=== PATIENT | female | born 1980 | race Two or more races ===

== ENCOUNTER 2024-07-11 11:15 | Inpatient (IN) | payer OTHER ==
[~2024-07-11] VITALS: Ht 162.6 cm; Wt 93.4 kg
[2024-07-11 14:00] VITALS: BP 114/65
[2024-07-20] MEDS ORDERED: CEFTRIAXONE SODIUM 2,000 MG VIAL IV SCH (16:30)
[2024-07-20] MEDS ORDERED: METRONIDAZOLE/SODIUM CHLORIDE 500 MG/100 ML PIGGYBACK IV SCH (16:30)
[2024-07-20] MEDS ORDERED: ONDANSETRON HCL 2 MG/ML VIAL IV PRN (16:30)
[2024-07-20] MEDS ORDERED: MORPHINE SULFATE 4 MG/ML CARTRIDGE IV PRN (16:30)
[2024-07-20] MEDS ORDERED: SUGAMMADEX SODIUM 200 MG/2 ML VIAL IV SCH (16:30)
[2024-07-20] MEDS ORDERED: BUPIVACAINE HCL 30 ML VIAL IJ SCH (16:30)
[2024-07-20] MEDS ORDERED: LIDOCAINE HCL 1%/EPINEPHRINE 20ML VIAL IJ SCH (16:30)
[2024-07-20] MEDS ORDERED: OxyCODONE HCL 5 MG TABLET (ROXICODONE) PO PRN (16:30)
[2024-07-20] MEDS ORDERED: RINGERS SOLUTION,LACTATED 1,000 ML IV SCH (16:30)
[2024-07-20] MEDS ORDERED: DEXTROSE 50 % IN WATER 0.5 G/ML DISP.SYRIN IV PRN (16:30)
[2024-07-20] MEDS ORDERED: MORPHINE SULFATE 4 MG/ML VIAL IV ONE ×2 (16:45→18:00)
[2024-07-20] MEDS ORDERED: POLYETHYLENE GLYCOL 3350 17 GM BLIST.PACK PO SCH (17:00)
[2024-07-20] MEDS ORDERED: METOCLOPRAMIDE HCL 5 MG/ML VIAL IV SCH (17:00)
[2024-07-20] MEDS ORDERED: HYOSCYAMINE SULFATE 0.125 MG TAB.SUBL SL SCH (17:00)
[2024-07-20] MEDS ORDERED: CELECOXIB 200 MG CAPSULE PO SCH (17:00)
[2024-07-20] MEDS ORDERED: SIMETHICONE 125 MG CAPSULE PO SCH (17:00)
[2024-07-20] MEDS ORDERED: GABAPENTIN 300 MG CAPSULE PO SCH (17:00)
[2024-07-20 19:02] LABS: HEMATOCRIT 32.5 % (36.0-45.00); HEMOGLOBIN 10.6 g/dL (12.0-15.00); MEAN CELL VOLUME 79.8 fL (80.00-100.00); MEAN CORPUSCULAR HGB CONC 32.6 g/dl (32.0-36.0); PLATELET COUNT 516 K/uL (150-450); RED BLOOD COUNT 4.07 M/uL (4.00-6.00); RED CELL DISTRIBUTION WIDTH 23.4 % (11.5-14.5)
[2024-07-20] MEDS ORDERED: ACETAMINOPHEN 500 MG GEL..CAP PO SCH (20:00)
[2024-07-20 20:19] VITALS: BP 114/65; O2SAT 96
[2024-07-20] MEDS ORDERED: FAMOTIDINE/PF 20 MG/2 ML VIAL IV PUSH SCH (21:00)
[2024-07-21 01:55] VITALS: BP 111/60; O2SAT 95
[2024-07-21 06:54] LABS: HEMATOCRIT 28.3 % (36.0-45.00); HEMOGLOBIN 9.3 g/dL (12.0-15.00); MEAN CELL VOLUME 78.7 fL (80.00-100.00); MEAN CORPUSCULAR HEMOGLOBIN 25.9 pg (27.00-32.0); MEAN CORPUSCULAR HGB CONC 32.9 g/dl (32.0-36.0); PLATELET COUNT 451 K/uL (150-450); RED CELL DISTRIBUTION WIDTH 22.3 % (11.5-14.5)
[2024-07-21 07:07] LABS: ALBUMIN 1.5 gm/dL (3.4-5.0); CREATININE SERUM 0.37 mg/dL (0.55-1.02); GFR 189.72; MAGNESIUM 2.1 mg/dL (1.8-2.4); PHOSPHOROUS 3.4 mg/dL (2.5-4.9); POTASSIUM 3.57 mEq/L (3.5-5.1)
[2024-07-21] MEDS ORDERED: LACTULOSE 20 G/30 ML BLIST.PACK PO SCH (09:00)
[2024-07-21] MEDS ORDERED: LACTOBACILLUS ACIDOPHILUS 1 CAP CAP PO SCH (09:00)
[2024-07-21 09:03] VITALS: BP 109/73; O2SAT 95
[2024-07-21 16:08] VITALS: BP 90/62; O2SAT 95
[2024-07-21] MEDS ORDERED: ENOXAPARIN SODIUM 40 MG/0.4 ML SYRINGE SUBCUTANEO SCH (17:00)
[2024-07-22 00:12] VITALS: BP 100/68; O2SAT 98
[2024-07-22 08:30] VITALS: BP 103/63; O2SAT 98
[2024-07-22] MEDS ORDERED: ENOXAPARIN SODIUM 40 MG/0.4 ML SYRINGE SUBCUTANEO SCH (09:00)
[2024-07-22 16:00] VITALS: BP 110/68; O2SAT 97
[2024-07-23 00:03] VITALS: BP 132/69; O2SAT 97
[2024-07-23 08:37] VITALS: BP 98/68; O2SAT 98
[2024-07-23] MEDS ORDERED: ZINC OXIDE 30 GM TUBE TOP SCH ×2 (12:18→17:00)
[2024-07-23 16:25] VITALS: BP 86/58; O2SAT 95
[2024-07-23 18:51] VITALS: BP 90/62
[2024-07-24 00:05] VITALS: BP 107/63; O2SAT 100
[2024-07-24 08:00] VITALS: BP 102/62; O2SAT 97
[2024-07-24 16:49] VITALS: BP 104/74; O2SAT 99
[2024-07-24 23:45] VITALS: BP 96/64; O2SAT 100
[2024-07-25 08:00] VITALS: BP 115/55; O2SAT 99
== END 2024-07-25 14:49 | disposition home or self-care (01) | DRG 983 ==
LOC: SURH 07-20 11:15 → O/R 07-20 11:52 → SURG 07-20 11:52 → SURH 07-20 21:45 → SURG 07-25 14:49
PROVIDERS: ADMIT Colon & Rectal Surgery; ATTEND Colon & Rectal Surgery
PROC: 0D1L4Z4 Bypass Transverse Colon to Cutaneous, Percutaneous Endoscopic Approach (ICD-10-PCS; principal; 2024-07-20 21:45)
DX: K82.3 Fistula of gallbladder (principal); K62.7 Radiation proctitis

== ENCOUNTER 2024-09-10 09:59 | Inpatient (IN) | payer OTHER ==
[~2024-09-10] VITALS: Ht 162.6 cm; Wt 84.4 kg
[2024-09-10] MEDS ORDERED: 0.9 % SODIUM CHLORIDE 1,000 ML IV ONE (10:30)
[2024-09-10 11:07] LABS: HEMATOCRIT 31.3 % (36.0-45.00); MEAN CELL VOLUME 82.6 fL (80.00-100.00); MEAN CORPUSCULAR HEMOGLOBIN 26.3 pg (27.00-32.0); MEAN CORPUSCULAR HGB CONC 31.9 g/dl (32.0-36.0); PLATELET COUNT 445 K/uL (150-450); RED BLOOD COUNT 3.78 M/uL (4.00-6.00); RED CELL DISTRIBUTION WIDTH 18.1 % (11.5-14.5)
[2024-09-10 11:23] LABS: ALBUMIN 2.4 gm/dL (3.4-5.0); BILIRUBIN TOTAL 0.2 mg/dL (0.3-1.2); CALCIUM 8.9 mg/dL (8.5-10.1); CREATININE SERUM 0.46 mg/dL (0.55-1.02); GFR 147.57; GLOBULINA 5.5 G/DL (2.4-3.5); TOTAL PROTEIN 7.9 gm/dL (6.4-8.2)
[2024-09-10 11:50] LABS: URINE APPEARANCE Cloudy; URINE BILIRRUBIN Negative (NEGATIVE); URINE COLOR Yellow; URINE GLUCOSE Negative (NEGATIVE); URINE KETONE Negative (NEGATIVE); URINE LEUKOCYTE Large; URINE NITRATE Negative; URINE PROTEIN Trace (NEGATIVE); URINE UROBILINOGEN 0.2 E.U./dl
[2024-09-10 11:56] LABS: URINE BACTERIA 943.6 uL (0.0-1933); URINE EPITHELIAL CELLS 2.6 uL (0.0-38.8); URINE RBC 19.4 uL (0.0-20.8); URINE WBC 619.3 uL (0.0-23.2)
[2024-09-10 12:01] LABS: URINE BLOOD TRACE; URINE CAST 0.29 uL (0.0-1.40)
[2024-09-10] MEDS ORDERED: KETOROLAC TROMETHAMINE 60 MG VIAL IM ONE (12:09)
[2024-09-10] MEDS ORDERED: KETOROLAC TROMETHAMINE 15 MG VIAL IV ONE (12:15)
[2024-09-10 12:36] LABS: POTASSIUM 2.54 mEq/L (3.5-5.1)
[2024-09-10] MEDS ORDERED: POTASSIUM CHLORIDE IN 0.9%NACL 40 MEQ/1,000 ML PIGGYBAG IV ONE (12:45)
[2024-09-10] MEDS ORDERED: DIPHENHYDRAMINE HCL 50 MG/ML VIAL 1ML IV ONE (14:30)
[2024-09-10] MEDS ORDERED: METHYLPREDNISOLONE SOD SUCC 125 MG VIAL IV ONE (14:30)
[2024-09-10] MEDS ORDERED: DIPHENHYDRAMINE HCL 50 MG/ML VIAL 1ML ONE (14:46)
[2024-09-10] MEDS ORDERED: METHYLPREDNISOLONE SOD SUCC 125 MG VIAL ONE (14:47)
[2024-09-10] MEDS ORDERED: 0.9 % SODIUM CHLORIDE 1,000 ML IV SCH (21:00)
[2024-09-10] MEDS ORDERED: ONDANSETRON HCL 4 MG in 0.9 % SODIUM CHLORIDE 50 ML IV PRN (21:15)
[2024-09-10] MEDS ORDERED: ACETAMINOPHEN 325 MG TABLET PO PRN (21:15)
[2024-09-11 01:40] VITALS: BP 133/80; O2SAT 97
[2024-09-11] MEDS ORDERED: POTASSIUM CHLORIDE IN WATER 100 ML IV ONE (02:00)
[2024-09-11 07:51] LABS: INR 1.04; PROTHROMBIN TIME 11.3 SECONDS (9.0-11.5)
[2024-09-11 08:00] VITALS: BP 117/78; O2SAT 95
[2024-09-11 08:06] LABS: ALBUMIN 2.2 gm/dL (3.4-5.0); BILIRUBIN TOTAL 0.27 mg/dL (0.3-1.2); CALCIUM 8.9 mg/dL (8.5-10.1); CREATININE SERUM 0.4 mg/dL (0.55-1.02); GFR 173.4; GLOBULINA 4.7 G/DL (2.4-3.5); MAGNESIUM 1.9 mg/dL (1.8-2.4); PHOSPHOROUS 4.3 mg/dL (2.5-4.9); POTASSIUM 3.1 mEq/L (3.5-5.1); TOTAL PROTEIN 6.9 gm/dL (6.4-8.2)
[2024-09-11] MEDS ORDERED: PANTOPRAZOLE SODIUM 40 MG/VIAL VIAL IV SCH (09:00)
[2024-09-11] MEDS ORDERED: ACETAMINOPHEN 500 MG GEL..CAP PO PRN (10:00)
[2024-09-11] MEDS ORDERED: TRAMADOL HCL 50 MG TABLET PO SCH (18:00)
[2024-09-11 20:42] VITALS: BP 110/65; O2SAT 97
[2024-09-11] MEDS ORDERED: POTASSIUM CHLORIDE IN WATER 100 ML IV STA (23:20)
[2024-09-11] MEDS ORDERED: POTASSIUM CHLORIDE 20MEQ/100ML H2O PB IV ONE (23:26)
[2024-09-11] MEDS ORDERED: CIPROFLOXACIN IN 5 % DEXTROSE 200 ML IV SCH (23:30)
[2024-09-12] MEDS ORDERED: CIPROFLOXACIN IN 5 % DEXTROSE 400 MG/200 ML PIGGYBAG IV ONE (01:04)
[2024-09-12 23:26] LABS: PH,URINE 7.5 (5.0-8.0); URINE APPEARANCE Clear; URINE BILIRRUBIN Negative (NEGATIVE); URINE BLOOD NHT; URINE COLOR Yellow; URINE GLUCOSE Negative (NEGATIVE); URINE KETONE Negative (NEGATIVE); URINE LEUKOCYTE Large; URINE NITRATE Negative; URINE PROTEIN Negative (NEGATIVE); URINE UROBILINOGEN 0.2 E.U./dl
[2024-09-12 23:30] LABS: URINE BACTERIA 204.3 uL (0.0-1933); URINE RBC 8.2 uL (0.0-20.8); URINE WBC 62.2 uL (0.0-23.2)
[2024-09-13 07:06] LABS: HEMATOCRIT 30.1 % (36.0-45.00); HEMOGLOBIN 9.8 g/dL (12.0-15.00); MEAN CORPUSCULAR HEMOGLOBIN 26.5 pg (27.00-32.0); MEAN CORPUSCULAR HGB CONC 32.7 g/dl (32.0-36.0); PLATELET COUNT 439 K/uL (150-450); RED BLOOD COUNT 3.71 M/uL (4.00-6.00)
[2024-09-13 07:50] LABS: ALBUMIN 2.5 gm/dL (3.4-5.0); BILIRUBIN TOTAL 0.31 mg/dL (0.3-1.2); CREATININE SERUM 0.41 mg/dL (0.55-1.02); GFR 168.52; GLOBULINA 4.8 G/DL (2.4-3.5); MAGNESIUM 1.7 mg/dL (1.8-2.4); PHOSPHOROUS 4.7 mg/dL (2.5-4.9); POTASSIUM 3.09 mEq/L (3.5-5.1); TOTAL PROTEIN 7.3 gm/dL (6.4-8.2)
[2024-09-13 07:51] LABS: C-REACTIVE PROTEIN 2.25 MG/DL (0.00-0.29)
[2024-09-13 08:00] VITALS: BP 145/71; O2SAT 100
[2024-09-13 16:00] VITALS: BP 118/63; O2SAT 100
[2024-09-14] VITALS: BP 116/82; O2SAT 98
[2024-09-14 09:06] VITALS: BP 126/68; O2SAT 98
[2024-09-14] MEDS ORDERED: POTASSIUM CHLORIDE IN WATER 100 ML IV STA (12:32)
[2024-09-14] MEDS ORDERED: MAGNESIUM SULFATE/D5W 100 ML IV NR (12:45)
[2024-09-14] MEDS ORDERED: SOD FERRIC GLUC COMPLX/SUCROSE 62.5 MG/5 ML AMPUL IV NR (12:50)
[2024-09-14 16:00] VITALS: BP 138/79; O2SAT 99
[2024-09-14] MEDS ORDERED: POTASSIUM CHLORIDE IN WATER 100 ML IV NR (17:00)
[2024-09-15 00:17] VITALS: BP 115/62; O2SAT 99
[2024-09-15 07:51] VITALS: BP 106/71; O2SAT 98
[2024-09-15 07:59] LABS: CALCIUM 8.7 mg/dL (8.5-10.1); CREATININE SERUM 0.4 mg/dL (0.55-1.02); GFR 173.4; POTASSIUM 3.2 mEq/L (3.5-5.1)
[2024-09-15] MEDS ORDERED: SOD FERRIC GLUC COMPLX/SUCROSE 62.5 MG/5 ML AMPUL IV SCH (09:00)
[2024-09-15] MEDS ORDERED: FUROsemide 20 MG/2 ML VIAL IV STA ×2 (09:19→12:05)
[2024-09-15] MEDS ORDERED: MAGNESIUM SULFATE/D5W 100 ML IV NR (11:45)
[2024-09-15] MEDS ORDERED: POTASSIUM CHLORIDE IN WATER 100 ML IV SCH (13:00)
[2024-09-15 16:00] VITALS: BP 118/55; O2SAT 100
[2024-09-15] MEDS ORDERED: VANCOMYCIN HCL 1,000 MG VIAL ONE (16:46)
[2024-09-15] MEDS ORDERED: VANCOMYCIN HCL 1,000 MG VIAL IV SCH (17:00)
[2024-09-15 23:47] VITALS: BP 118/64; O2SAT 99
[2024-09-16] MEDS ORDERED: VANCOMYCIN HCL 1,000 MG VIAL ONE ×3 (03:25→23:44)
[2024-09-16 09:16] VITALS: BP 105/73; O2SAT 98
[2024-09-16] MEDS ORDERED: SODIUM CL 0.9% 50 ML IV.SOLN IV ONE (12:22)
[2024-09-16 16:00] VITALS: BP 101/68; O2SAT 99
[2024-09-16] MEDS ORDERED: OxyCODONE HCL/APAP UD (PERCOCET) PO PRN (22:45)
[2024-09-17] VITALS: BP 111/73; O2SAT 98
[2024-09-17 08:21] VITALS: BP 116/75; O2SAT 95
[2024-09-17 08:22] LABS: HEMATOCRIT 29.1 % (36.0-45.00); HEMOGLOBIN 9.4 g/dL (12.0-15.00); MEAN CORPUSCULAR HEMOGLOBIN 26.6 pg (27.00-32.0); MEAN CORPUSCULAR HGB CONC 32.4 g/dl (32.0-36.0); RED BLOOD COUNT 3.55 M/uL (4.00-6.00); RED CELL DISTRIBUTION WIDTH 17.1 % (11.5-14.5)
[2024-09-17 08:24] LABS: CALCIUM 8.8 mg/dL (8.5-10.1); CREATININE SERUM 0.44 mg/dL (0.55-1.02); GFR 155.34; POTASSIUM 3.03 mEq/L (3.5-5.1)
[2024-09-17 10:01] LABS: PLATELET COUNT 357 K/uL (150-450)
[2024-09-17] MEDS ORDERED: POTASSIUM CHLORIDE IN WATER 100 ML IV NR (11:30)
[2024-09-17] MEDS ORDERED: VANCOMYCIN HCL 1,000 MG VIAL ONE (15:45)
[2024-09-17 16:14] VITALS: BP 121/81; O2SAT 97
[2024-09-18] VITALS: BP 123/77; O2SAT 97
[2024-09-18] MEDS ORDERED: VANCOMYCIN HCL 1,000 MG VIAL ONE ×2 (00:02→15:21)
[2024-09-18 07:49] LABS: HEMATOCRIT 28.2 % (36.0-45.00); HEMOGLOBIN 9.3 g/dL (12.0-15.00); MEAN CELL VOLUME 81.2 fL (80.00-100.00); MEAN CORPUSCULAR HEMOGLOBIN 26.8 pg (27.00-32.0); PLATELET COUNT 352 K/uL (150-450); RED BLOOD COUNT 3.47 M/uL (4.00-6.00); RED CELL DISTRIBUTION WIDTH 17.6 % (11.5-14.5)
[2024-09-18 08:00] VITALS: BP 111/73; O2SAT 95
[2024-09-18 08:09] LABS: CALCIUM 8.9 mg/dL (8.5-10.1); CREATININE SERUM 0.49 mg/dL (0.55-1.02); GFR 137.19; MAGNESIUM 1.7 mg/dL (1.8-2.4); PHOSPHOROUS 4.2 mg/dL (2.5-4.9); POTASSIUM 3.09 mEq/L (3.5-5.1)
[2024-09-18 16:07] VITALS: BP 97/53; O2SAT 96
[2024-09-19] VITALS: BP 102/68; O2SAT 96
[2024-09-19] MEDS ORDERED: VANCOMYCIN HCL 1,000 MG VIAL ONE ×3 (00:28→23:21)
[2024-09-19] MEDS ORDERED: OxyCODONE HCL/APAP UD (PERCOCET) PO PRN (03:30)
[2024-09-19 07:58] LABS: HEMATOCRIT 32.9 % (36.0-45.00); HEMOGLOBIN 10.3 g/dL (12.0-15.00); MEAN CELL VOLUME 83.7 fL (80.00-100.00); MEAN CORPUSCULAR HEMOGLOBIN 26.3 pg (27.00-32.0); MEAN CORPUSCULAR HGB CONC 31.4 g/dl (32.0-36.0); PLATELET COUNT 115 K/uL (150-450); RED BLOOD COUNT 3.94 M/uL (4.00-6.00); RED CELL DISTRIBUTION WIDTH 17.3 % (11.5-14.5)
[2024-09-19 08:32] LABS: CREATININE SERUM 0.48 mg/dL (0.55-1.02); GFR 140.5; MAGNESIUM 1.9 mg/dL (1.8-2.4); PHOSPHOROUS 4.5 mg/dL (2.5-4.9); POTASSIUM 3.22 mEq/L (3.5-5.1)
[2024-09-19 09:00] VITALS: BP 119/62; O2SAT 96
[2024-09-19 12:12] LABS: URINE APPEARANCE Clear; URINE BILIRRUBIN Negative (NEGATIVE); URINE BLOOD Negative; URINE COLOR Yellow; URINE GLUCOSE Negative (NEGATIVE); URINE KETONE Trace (NEGATIVE); URINE LEUKOCYTE Small; URINE NITRATE Negative; URINE PROTEIN Negative (NEGATIVE); URINE UROBILINOGEN 0.2 E.U./dl
[2024-09-19 12:46] LABS: URINE BACTERIA 30.5 uL (0.0-1933); URINE RBC 2.9 uL (0.0-20.8); URINE WBC 30.4 uL (0.0-23.2)
[2024-09-19] MEDS ORDERED: POTASSIUM CHLORIDE IN WATER 100 ML IV NR (13:00)
[2024-09-19 16:46] VITALS: BP 110/60; O2SAT 95
[2024-09-20 00:45] VITALS: BP 100/67; O2SAT 96
[2024-09-20 07:06] LABS: HEMATOCRIT 29.3 % (36.0-45.00); HEMOGLOBIN 9.5 g/dL (12.0-15.00); MEAN CELL VOLUME 81.7 fL (80.00-100.00); MEAN CORPUSCULAR HEMOGLOBIN 26.4 pg (27.00-32.0); MEAN CORPUSCULAR HGB CONC 32.3 g/dl (32.0-36.0); PLATELET COUNT 313 K/uL (150-450); RED BLOOD COUNT 3.59 M/uL (4.00-6.00); RED CELL DISTRIBUTION WIDTH 17.4 % (11.5-14.5)
[2024-09-20 08:14] LABS: CALCIUM 8.7 mg/dL (8.5-10.1); CREATININE SERUM 0.48 mg/dL (0.55-1.02); GFR 140.5
[2024-09-20 08:28] VITALS: BP 122/89; O2SAT 100
[2024-09-20 09:26] LABS: POTASSIUM 2.83 mEq/L (3.5-5.1)
[2024-09-20] MEDS ORDERED: POTASSIUM CHLORIDE 20MEQ/100ML H2O PB IV NR (13:42)
[2024-09-20] MEDS ORDERED: MAGNESIUM SULFATE IN WATER 50 ML IV NR (13:43)
[2024-09-20 16:00] VITALS: BP 96/62; O2SAT 96
[2024-09-20] MEDS ORDERED: VANCOMYCIN HCL 5 MG/ML REDILUIDO IV SCH (17:00)
[2024-09-21] VITALS: BP 108/67; O2SAT 97
[2024-09-21 08:20] VITALS: BP 104/72; O2SAT 96
[2024-09-21 12:03] LABS: CALCIUM 8.6 mg/dL (8.5-10.1); CREATININE SERUM 0.48 mg/dL (0.55-1.02); GFR 140.5; MAGNESIUM 2.1 mg/dL (1.8-2.4); PHOSPHOROUS 3.5 mg/dL (2.5-4.9); POTASSIUM 3.08 mEq/L (3.5-5.1)
[2024-09-21] MEDS ORDERED: POTASSIUM CHLORIDE 8 MEQ TABLET PO STA (12:12)
== END 2024-09-21 13:28 | disposition home or self-care (01) | DRG 394 ==
LOC: ER 10:01 → SURH 21:01
PROVIDERS: General Practice; Internal Medicine; Internal Medicine Geriatric Medicine; Internal Medicine Infectious Disease; Specialist; Surgery; ADMIT Colon & Rectal Surgery; ATTEND Colon & Rectal Surgery
PROC: BW21YZZ Computerized Tomography (CT Scan) of Abdomen and Pelvis using Other Contrast (ICD-10-PCS; 2024-09-10)
PROC: CT231ZZ Tomographic (Tomo) Nuclear Medicine Imaging of Kidneys, Ureters and Bladder using Technetium 99m (Tc-99m) (ICD-10-PCS; 2024-09-13)
PROC: 02HV33Z Insertion of Infusion Device into Superior Vena Cava, Percutaneous Approach (ICD-10-PCS; principal; 2024-09-14)
DX: K94.09 Other complications of colostomy (principal); N13.30 Unspecified hydronephrosis; N82.3 Fistula of vagina to large intestine; N39.0 Urinary tract infection, site not specified; E87.6 Hypokalemia; K31.89 Other diseases of stomach and duodenum; K62.7 Radiation proctitis; D64.9 Anemia, unspecified

== ENCOUNTER 2024-11-07 10:15 | Inpatient (IN) | payer OTHER ==
[~2024-11-07] VITALS: Ht 152.4 cm; Wt 84.4 kg
[2024-11-07] MEDS ORDERED: ENDOCET 5-3251 EACH PO (11:59)
[2024-11-07] MEDS ORDERED: FENTANYL1 EAC3 TD (11:59)
[2024-11-07] MEDS ORDERED: DICY20TA PO (12:00)
[2024-11-08] MEDS ORDERED: FUROsemide 20 MG/2 ML VIAL IV PRN (15:00)
[2024-11-08] MEDS ORDERED: OxyCODONE HCL 5 MG TABLET (ROXICODONE) PO PRN (15:00)
[2024-11-08] MEDS ORDERED: fentaNYL 25 MCG PATCH.TD72 TD NR (15:00)
[2024-11-08 16:00] VITALS: BP 130/63; O2SAT 99
[2024-11-08] MEDS ORDERED: SOD FERRIC GLUC COMPLX/SUCROSE 62.5 MG in 0.9 % SODIUM CHLORIDE 50 ML IV SCH (17:00)
[2024-11-08] MEDS ORDERED: ACETAMINOPHEN 325 MG TABLET PO SCH (17:00)
[2024-11-08] MEDS ORDERED: POLYETHYLENE GLYCOL 3350 238 GM POWDER PO NR (17:45)
[2024-11-08] MEDS ORDERED: FAMOTIDINE/PF 20 MG/2 ML VIAL IV SCH (21:00)
[2024-11-08] MEDS ORDERED: BISACODYL 5 MG TABLET.EC PO SCH (21:00)
[2024-11-09 08:15] VITALS: BP 132/79; O2SAT 99
[2024-11-09] MEDS ORDERED: MORPHINE SULFATE 4 MG/ML CARTRIDGE IV STA (10:19)
[2024-11-09] MEDS ORDERED: MORPHINE SULFATE 4 MG/ML CARTRIDGE IV PRN (11:15)
[2024-11-09 11:39] LABS: HEMATOCRIT 33.6 % (36.0-45.00); HEMOGLOBIN 10.7 g/dL (12.0-15.00); MEAN CELL VOLUME 77.8 fL (80.00-100.00); MEAN CORPUSCULAR HEMOGLOBIN 24.8 pg (27.00-32.0); MEAN CORPUSCULAR HGB CONC 31.9 g/dl (32.0-36.0); PLATELET COUNT 476 K/uL (150-450); RED BLOOD COUNT 4.32 M/uL (4.00-6.00); RED CELL DISTRIBUTION WIDTH 16.7 % (11.5-14.5)
[2024-11-09] MEDS ORDERED: METRONIDAZOLE/SODIUM CHLORIDE 500 MG/100 ML PIGGYBACK IV ONE (16:04)
[2024-11-09] MEDS ORDERED: CEFTRIAXONE SODIUM 2,000 MG VIAL ONE (16:04)
[2024-11-09] MEDS ORDERED: SUGAMMADEX SODIUM 200 MG/2 ML VIAL IV ONE (16:16)
[2024-11-09] MEDS ORDERED: DILTIAZEM HCL 25 MG/5 ML VIAL IV ONE (16:17)
[2024-11-09] MEDS ORDERED: MORPHINE SULFATE 4 MG/ML VIAL IV ONE ×2 (17:45→18:00)
[2024-11-09 19:43] LABS: HEMATOCRIT 37.2 % (36.0-45.00); HEMOGLOBIN 11.7 g/dL (12.0-15.00); MEAN CELL VOLUME 78.6 fL (80.00-100.00); MEAN CORPUSCULAR HEMOGLOBIN 24.8 pg (27.00-32.0); MEAN CORPUSCULAR HGB CONC 31.6 g/dl (32.0-36.0); PLATELET COUNT 566 K/uL (150-450); RED BLOOD COUNT 4.73 M/uL (4.00-6.00); RED CELL DISTRIBUTION WIDTH 17.3 % (11.5-14.5)
[2024-11-09 20:07] LABS: ALBUMIN 2.2 gm/dL (3.4-5.0); CALCIUM 8.9 mg/dL (8.5-10.1); CREATININE SERUM 0.85 mg/dL (0.55-1.02); GFR 72.66; MAGNESIUM 1.7 mg/dL (1.8-2.4); PHOSPHOROUS 4.5 mg/dL (2.5-4.9); POTASSIUM 3.48 mEq/L (3.5-5.1)
[2024-11-10] VITALS: BP 136/80; O2SAT 99
[2024-11-10 07:34] LABS: HEMOGLOBIN 10.6 g/dL (12.0-15.00); MEAN CELL VOLUME 77.7 fL (80.00-100.00); MEAN CORPUSCULAR HGB CONC 32.2 g/dl (32.0-36.0); PLATELET COUNT 460 K/uL (150-450); RED BLOOD COUNT 4.25 M/uL (4.00-6.00); RED CELL DISTRIBUTION WIDTH 17.3 % (11.5-14.5)
[2024-11-10 08:00] VITALS: BP 120/75; O2SAT 94
[2024-11-10 08:05] LABS: ALBUMIN 1.9 gm/dL (3.4-5.0); CALCIUM 8.8 mg/dL (8.5-10.1); CREATININE SERUM 0.88 mg/dL (0.55-1.02); GFR 69.8; MAGNESIUM 1.6 mg/dL (1.8-2.4); PHOSPHOROUS 5.1 mg/dL (2.5-4.9); POTASSIUM 3.73 mEq/L (3.5-5.1)
[2024-11-10] MEDS ORDERED: MEPERIDINE HCL/PF 25 MG/ML VIAL IM STA (11:35)
[2024-11-10] MEDS ORDERED: PROMETHAZINE HCL 25 MG/ML AMPUL IM STA (11:36)
[2024-11-10] MEDS ORDERED: MAGNESIUM SULFATE IN WATER 50 ML IV NR (12:00)
[2024-11-10 16:21] VITALS: BP 128/74; O2SAT 97
[2024-11-11] VITALS: BP 133/87; O2SAT 95
[2024-11-11 08:03] LABS: MEAN CORPUSCULAR HEMOGLOBIN 25.2 pg (27.00-32.0); MEAN CORPUSCULAR HGB CONC 32.7 g/dl (32.0-36.0); PLATELET COUNT 410 K/uL (150-450); RED BLOOD COUNT 3.76 M/uL (4.00-6.00); RED CELL DISTRIBUTION WIDTH 17.8 % (11.5-14.5)
[2024-11-11 08:14] LABS: HEMOGLOBIN 9.5 g/dL (12.0-15.00)
[2024-11-11 08:27] LABS: CALCIUM 8.6 mg/dL (8.5-10.1); CREATININE SERUM 0.77 mg/dL (0.55-1.02); FREE TRIODOTIRONINE 1.39 pg/ml (2.18-3.98); GFR 81.43; MAGNESIUM 2.2 mg/dL (1.8-2.4); PHOSPHOROUS 4.1 mg/dL (2.5-4.9); POTASSIUM 3.68 mEq/L (3.5-5.1); T4 TOTAL 6.32 UG/DL (4.8-13.9); TSH 2.12 uIU/mL (0.358-3.74)
[2024-11-11 09:09] VITALS: BP 136/83; O2SAT 99
[2024-11-11] MEDS ORDERED: CIPROFLOXACIN IN 5 % DEXTROSE 200 ML IV SCH (09:17)
[2024-11-11] MEDS ORDERED: METRONIDAZOLE/SODIUM CHLORIDE 100 ML IV SCH (13:00)
[2024-11-11] MEDS ORDERED: fentaNYL 25 MCG PATCH.TD72 TD SCH (15:00)
[2024-11-11 16:12] VITALS: BP 113/72; O2SAT 99
[2024-11-12 02:01] VITALS: BP 94/60; O2SAT 100
[2024-11-12 07:41] LABS: CALCIUM 9.1 mg/dL (8.5-10.1); CREATININE SERUM 0.79 mg/dL (0.55-1.02); GFR 79.06; MAGNESIUM 2.2 mg/dL (1.8-2.4); PHOSPHOROUS 3.4 mg/dL (2.5-4.9); POTASSIUM 3.83 mEq/L (3.5-5.1)
[2024-11-12 08:05] LABS: HEMATOCRIT 30.8 % (36.0-45.00); HEMOGLOBIN 9.7 g/dL (12.0-15.00); MEAN CELL VOLUME 78.9 fL (80.00-100.00); MEAN CORPUSCULAR HEMOGLOBIN 24.8 pg (27.00-32.0); MEAN CORPUSCULAR HGB CONC 31.4 g/dl (32.0-36.0); RED CELL DISTRIBUTION WIDTH 18.1 % (11.5-14.5)
[2024-11-12 09:33] LABS: PLATELET COUNT 443 K/uL (150-450)
[2024-11-12 09:58] VITALS: BP 129/83; O2SAT 97
[2024-11-12 17:00] VITALS: BP 113/72; O2SAT 97
[2024-11-13 00:20] VITALS: BP 121/77; O2SAT 97
[2024-11-13] MEDS ORDERED: RINGERS SOLUTION,LACTATED 1,000 ML IV SCH (08:00)
[2024-11-13 17:20] VITALS: BP 115/73; O2SAT 93
[2024-11-13 23:52] VITALS: BP 113/64; O2SAT 98
[2024-11-14 08:00] VITALS: BP 118/78; O2SAT 93
[2024-11-14] MEDS ORDERED: OxyCODONE HCL 5 MG TABLET (ROXICODONE) PO PRN (11:15)
[2024-11-14] MEDS ORDERED: GUAIFENESIN 600 MG TABLET.SA PO SCH (12:21)
[2024-11-14] MEDS ORDERED: LEVALBUTEROL HCL 0.63 MG/3 ML SOLUTION IH SCH (13:00)
[2024-11-14] MEDS ORDERED: BENZONATATE 100 MG CAPSULE PO SCH (13:00)
[2024-11-14 14:52] LABS: PH,URINE 6.5 (5.0-8.0); URINE APPEARANCE Clear; URINE BILIRRUBIN Negative (NEGATIVE); URINE BLOOD Moderate; URINE COLOR Yellow; URINE GLUCOSE Negative (NEGATIVE); URINE KETONE Negative (NEGATIVE); URINE LEUKOCYTE Moderate; URINE NITRATE Negative; URINE PROTEIN Trace (NEGATIVE); URINE UROBILINOGEN 0.2 E.U./dl
[2024-11-14 14:56] LABS: URINE BACTERIA 188.4 uL (0.0-1933); URINE CAST 1.76 uL (0.0-1.40); URINE EPITHELIAL CELLS 8.3 uL (0.0-38.8); URINE WBC 129.4 uL (0.0-23.2)
[2024-11-14 15:57] VITALS: BP 126/83; O2SAT 95
[2024-11-14 20:51] VITALS: BP 125/82; O2SAT 96
[2024-11-15 00:39] VITALS: BP 109/70; O2SAT 97
[2024-11-15 07:17] LABS: HEMATOCRIT 24.7 % (36.0-45.00); MEAN CELL VOLUME 77.3 fL (80.00-100.00); MEAN CORPUSCULAR HEMOGLOBIN 25.3 pg (27.00-32.0); MEAN CORPUSCULAR HGB CONC 32.7 g/dl (32.0-36.0); PLATELET COUNT 392 K/uL (150-450); RED BLOOD COUNT 3.19 M/uL (4.00-6.00); RED CELL DISTRIBUTION WIDTH 18.7 % (11.5-14.5)
[2024-11-15 07:21] LABS: HEMOGLOBIN 8.1 g/dL (12.0-15.00)
[2024-11-15 08:00] VITALS: BP 116/77; O2SAT 98
[2024-11-15 08:15] LABS: CALCIUM 8.1 mg/dL (8.5-10.1); CREATININE SERUM 0.61 mg/dL (0.55-1.02); GFR 106.55; MAGNESIUM 1.9 mg/dL (1.8-2.4); PHOSPHOROUS 3.6 mg/dL (2.5-4.9)
[2024-11-15 08:40] LABS: POTASSIUM 2.92 mEq/L (3.5-5.1)
[2024-11-15] MEDS ORDERED: POTASSIUM CHLORIDE/NACL 0.9% 1,000 ML IV NR (11:00)
[2024-11-15 16:00] VITALS: BP 117/69; O2SAT 98
[2024-11-15 23:58] VITALS: BP 109/70; O2SAT 98
[2024-11-16] MEDS ORDERED: VANCOMYCIN HCL 1,000 MG VIAL IV SCH (04:38)
[2024-11-16] MEDS ORDERED: MEROPENEM 500 MG/VIAL VIAL IV SCH ×2 (05:00→12:00)
[2024-11-16] MEDS ORDERED: DIATRIZOATE MEGLUMINE, SODIUM 30 ML BOTTLE PO NR (08:15)
[2024-11-16] MEDS ORDERED: DIPHENHYDRAMINE HCL 50 MG/ML VIAL 1ML IV NR (11:00)
[2024-11-16] MEDS ORDERED: METHYLPREDNISOLONE SOD SUCC 40 MG VIAL IV NR (11:15)
[2024-11-16 11:45] LABS: HEMATOCRIT 37.3 % (36.0-45.00); HEMOGLOBIN 11.8 g/dL (12.0-15.00); MEAN CELL VOLUME 80.3 fL (80.00-100.00); MEAN CORPUSCULAR HEMOGLOBIN 25.3 pg (27.00-32.0); MEAN CORPUSCULAR HGB CONC 31.6 g/dl (32.0-36.0); PLATELET COUNT 452 K/uL (150-450); RED BLOOD COUNT 4.64 M/uL (4.00-6.00); RED CELL DISTRIBUTION WIDTH 17.7 % (11.5-14.5)
[2024-11-16 12:53] LABS: CALCIUM 8.6 mg/dL (8.5-10.1); CREATININE SERUM 0.87 mg/dL (0.55-1.02); GFR 70.73; MAGNESIUM 1.6 mg/dL (1.8-2.4); PHOSPHOROUS 2.9 mg/dL (2.5-4.9); POTASSIUM 3.99 mEq/L (3.5-5.1)
[2024-11-16] MEDS ORDERED: ONDANSETRON HCL 2 MG/ML VIAL IV PRN (13:15)
[2024-11-16 14:18] VITALS: BP 119/72; O2SAT 99
[2024-11-16 16:00] VITALS: BP 136/84; O2SAT 97
[2024-11-17 00:16] VITALS: BP 118/74; O2SAT 95
[2024-11-17 06:53] LABS: HEMATOCRIT 31.3 % (36.0-45.00); MEAN CELL VOLUME 79.6 fL (80.00-100.00); MEAN CORPUSCULAR HEMOGLOBIN 25.4 pg (27.00-32.0); PLATELET COUNT 382 K/uL (150-450); RED BLOOD COUNT 3.93 M/uL (4.00-6.00)
[2024-11-17 07:46] LABS: CALCIUM 7.9 mg/dL (8.5-10.1); CREATININE SERUM 0.66 mg/dL (0.55-1.02); GFR 97.29; MAGNESIUM 1.8 mg/dL (1.8-2.4); PHOSPHOROUS 3.4 mg/dL (2.5-4.9); POTASSIUM 3.1 mEq/L (3.5-5.1)
[2024-11-17 08:00] VITALS: BP 132/80; O2SAT 95
[2024-11-17] MEDS ORDERED: POTASSIUM CHLORIDE 20MEQ/100ML H2O PB IV NR (10:15)
[2024-11-17 10:27] LABS: C-REACTIVE PROTEIN 11.1 MG/DL (0.00-0.29)
[2024-11-17] MEDS ORDERED: OxyCODONE HCL 5 MG TABLET (ROXICODONE) PO STA (14:56)
[2024-11-17 15:20] VITALS: BP 138/86; O2SAT 97
[2024-11-18 01:15] VITALS: BP 116/56; O2SAT 99
[2024-11-18 05:46] LABS: HEMATOCRIT 31.3 % (36.0-45.00); HEMOGLOBIN 10.3 g/dL (12.0-15.00); MEAN CORPUSCULAR HEMOGLOBIN 26.2 pg (27.00-32.0); MEAN CORPUSCULAR HGB CONC 32.8 g/dl (32.0-36.0); PLATELET COUNT 356 K/uL (150-450); RED BLOOD COUNT 3.91 M/uL (4.00-6.00); RED CELL DISTRIBUTION WIDTH 18.9 % (11.5-14.5)
[2024-11-18 08:00] VITALS: BP 127/80; O2SAT 97
[2024-11-18 08:34] VITALS: BP 127/80; O2SAT 97
[2024-11-18 12:52] LABS: CALCIUM 8.3 mg/dL (8.5-10.1); CREATININE SERUM 0.78 mg/dL (0.55-1.02); GFR 80.23; MAGNESIUM 1.5 mg/dL (1.8-2.4); PHOSPHOROUS 2.6 mg/dL (2.5-4.9)
[2024-11-18 13:00] LABS: C-REACTIVE PROTEIN 7.78 MG/DL (0.00-0.29)
[2024-11-18 13:15] LABS: POTASSIUM 2.94 mEq/L (3.5-5.1)
[2024-11-18 16:00] VITALS: BP 118/64; O2SAT 100
[2024-11-18] MEDS ORDERED: POTASSIUM CHLORIDE 20MEQ/100ML H2O PB IV SCH (18:15)
[2024-11-18] MEDS ORDERED: MAGNESIUM SULFATE IN WATER 50 ML IV ONE (18:15)
[2024-11-19 00:27] VITALS: BP 129/78; O2SAT 95
[2024-11-19 14:54] VITALS: BP 127/57; O2SAT 99
[2024-11-19 16:00] VITALS: BP 121/74; O2SAT 99
[2024-11-20 01:05] VITALS: BP 116/73; O2SAT 96
[2024-11-20 12:44] VITALS: BP 119/64; O2SAT 98
[2024-11-20 16:06] VITALS: BP 145/87; O2SAT 99
[2024-11-21 00:25] VITALS: BP 101/66; O2SAT 91
[2024-11-21 07:32] LABS: HEMATOCRIT 28.7 % (36.0-45.00); HEMOGLOBIN 9.6 g/dL (12.0-15.00); MEAN CELL VOLUME 79.6 fL (80.00-100.00); MEAN CORPUSCULAR HEMOGLOBIN 26.6 pg (27.00-32.0); MEAN CORPUSCULAR HGB CONC 33.4 g/dl (32.0-36.0); PLATELET COUNT 380 K/uL (150-450); RED BLOOD COUNT 3.61 M/uL (4.00-6.00); RED CELL DISTRIBUTION WIDTH 20.1 % (11.5-14.5)
[2024-11-21 08:29] LABS: CALCIUM 7.9 mg/dL (8.5-10.1); CREATININE SERUM 0.74 mg/dL (0.55-1.02); GFR 85.26; PHOSPHOROUS 3.5 mg/dL (2.5-4.9); POTASSIUM 3.57 mEq/L (3.5-5.1)
[2024-11-21 09:52] VITALS: BP 119/74; O2SAT 98
[2024-11-21] MEDS ORDERED: FUSION PLUS CA1 EACH PO (14:11)
[2024-11-21] MEDS ORDERED: ABANEU-SL TABL1 EACH SL (14:11)
[2024-11-21] MEDS ORDERED: DICY20TA PO (14:27)
== END 2024-11-21 16:18 | disposition home or self-care (01) | DRG 330 ==
LOC: SURG 11-08 13:36 → SURH 11-09 10:15 → SURG 11-21 16:18
PROVIDERS: Colon & Rectal Surgery; ADMIT Internal Medicine Geriatric Medicine; ATTEND Internal Medicine Geriatric Medicine
PROC: 30233N1 Transfusion of Nonautologous Red Blood Cells into Peripheral Vein, Percutaneous Approach (ICD-10-PCS; 2024-11-08)
PROC: 0WQF0ZZ Repair Abdominal Wall, Open Approach (ICD-10-PCS; 2024-11-09)
PROC: 0DBE0ZZ Excision of Large Intestine, Open Approach (ICD-10-PCS; principal; 2024-11-09 15:30)
PROC: B246ZZZ Ultrasonography of Right and Left Heart (ICD-10-PCS; 2024-11-10)
PROC: 4A12X4Z Monitoring of Cardiac Electrical Activity, External Approach (ICD-10-PCS; 2024-11-10)
PROC: B54CZZZ Ultrasonography of Left Lower Extremity Veins (ICD-10-PCS; 2024-11-13)
PROC: 02HV33Z Insertion of Infusion Device into Superior Vena Cava, Percutaneous Approach (ICD-10-PCS; 2024-11-15)
PROC: BW21YZZ Computerized Tomography (CT Scan) of Abdomen and Pelvis using Other Contrast (ICD-10-PCS; 2024-11-16)
PROC: 3E0F7GC Introduction of Other Therapeutic Substance into Respiratory Tract, Via Natural or Artificial Opening (ICD-10-PCS; 2024-11-16)
DX: K94.09 Other complications of colostomy (principal); D62 Acute posthemorrhagic anemia; I47.11 Inappropriate sinus tachycardia, so stated; N82.3 Fistula of vagina to large intestine; K43.5 Parastomal hernia without obstruction or gangrene; D64.89 Other specified anemias; K62.7 Radiation proctitis; R05.9 Cough, unspecified; E83.42 Hypomagnesemia; R22.42 Localized swelling, mass and lump, left lower limb; E87.6 Hypokalemia; N93.8 Other specified abnormal uterine and vaginal bleeding